=== PATIENT | male | born 1975 | race Caucasian/White ===

== ENCOUNTER 2021-03-27 14:58 | Emergency (ER) | payer OTHER ==
[~2021-03-27] VITALS: Ht 177 cm; Wt 65.0 kg
--- NOTE | 2021-03-27 15:17 | ED General ---
General Chief Complaint: COVID19 Suspect/Confirmed Stated Complaint: COVID+; DARK URINE History of Present Illness Date Seen by Provider: Mar 27, 2021 Time Seen by Provider: 15:15 Initial Comments 45-year-old male presents with just some generalized malaise not feeling well, mild cough. Patient reports that his symptoms started about 8 days ago. 7 days ago his daughter tested positive for COVID. He has similar symptoms. Patient presents because he continues to have significant fatigue and is concerned that his urine is dark and that he is dehydrated. Allergies and Home Medications Allergies Coded Allergies: No Known Drug Allergies (Unverified , 03/27/21) Patient Home Medication List Home Medication List Reviewed: Yes Review of Systems Review of Systems Constitutional: No chills, No fever; malaise Respiratory: No short of breath Cardiovascular: No chest pain Gastrointestinal: No abdominal pain, No nausea, No vomiting Musculoskeletal: no symptoms reported Skin: no symptoms reported Psychiatric/Neurological: See HPI Hematologic/Lymphatic: No Symptoms Reported Immunological/Allergic: no symptoms reported Physical Exam Vital Signs Vital Signs - First Documented 03/27/21 15:20 Temp 36.1 Pulse 67 Resp 16 B/P (MAP) 123/85 (98) Pulse Ox 97 O2 Delivery Room Air Capillary Refill : Height, Weight, BMI Height: '" Weight: lbs. oz. kg; BMI Method: General Appearance: No Apparent Distress, WD/WN HEENT: Moist Mucous Membranes Respiratory: Lungs Clear, Normal Breath Sounds Cardiovascular: Regular Rate, Rhythm, Normal Peripheral Pulses Gastrointestinal: Non Tender, Soft Extremity: Normal Capillary Refill, Normal Inspection, Normal Range of Motion Neurologic/Psychiatric: Alert, Oriented x3, No Motor/Sensory Deficits, Normal Mood/Affect, data programmer II-XII Norm as Tested Skin: Normal Color, Warm/Dry Progress/Results/Core Measures Suspected Sepsis SIRS Temperature: Pulse: Respiratory Rate: Laboratory Tests 03/27/21 15:26: White Blood Count 4.8 Blood Pressure / Mean: Laboratory Tests 03/27/21 15:26: Creatinine 0.91, Platelet Count 163, Total Bilirubin 0.4 Results/Orders Lab Results Laboratory Tests Test 03/27/21 15:26 Range/Units White Blood Count 4.8 4.3-11.0 10^3/uL Red Blood Count 5.74 H 4.30-5.52 10^6/uL Hemoglobin 16.9 13.3-17.7 g/dL Hematocrit 48 40-54 % Mean Corpuscular Volume 84 80-99 fL Mean Corpuscular Hemoglobin 29 25-34 pg Mean Corpuscular Hemoglobin Concent 35 32-36 g/dL Red Cell Distribution Width 12.3 10.0-14.5 % Platelet Count 163 130-400 10^3/uL Mean Platelet Volume 10.5 9.0-12.2 fL Immature Granulocyte % (Auto) 0 % Neutrophils (%) (Auto) 38 L 42-75 % Lymphocytes (%) (Auto) 43 12-44 % Monocytes (%) (Auto) 17 H 0-12 % Eosinophils (%) (Auto) 3 0-10 % Basophils (%) (Auto) 0 0-10 % Neutrophils # (Auto) 1.8 1.8-7.8 X 10^3 Lymphocytes # (Auto) 2.0 1.0-4.0 X 10^3 Monocytes # (Auto) 0.8 0.0-1.0 X 10^3 Eosinophils # (Auto) 0.1 0.0-0.3 10^3/uL Basophils # (Auto) 0.0 0.0-0.1 10^3/uL Immature Granulocyte # (Auto) 0.0 0.0-0.1 10^3/uL Neutrophils % (Manual) 48 % Lymphocytes % (Manual) 28 % Monocytes % (Manual) 13 % Myelocytes % 1 % Atypical Lymphocytes 6 % Reactive Lymphocytes 4 % Toxic Granulation 3+ Platelet Estimate NORMAL Blood Morphology Comment NORMAL Sodium Level 137 135-145 MMOL/L Potassium Level 4.5 3.6-5.0 MMOL/L Chloride Level 103 98-107 MMOL/L Carbon Dioxide Level 24 21-32 MMOL/L Anion Gap 10 5-14 MMOL/L Blood Urea Nitrogen 16 7-18 MG/DL Creatinine 0.91 0.60-1.30 MG/DL Estimat Glomerular Filtration Rate 105 BUN/Creatinine Ratio 18 Glucose Level 97 70-105 MG/DL Calcium Level 9.4 8.5-10.1 MG/DL Corrected Calcium 9.0 8.5-10.1 MG/DL Total Bilirubin 0.4 0.1-1.0 MG/DL Aspartate Amino Transf (AST/SGOT) 26 5-34 U/L Alanine Aminotransferase (ALT/SGPT) 32 0-55 U/L Alkaline Phosphatase 92 40-136 U/L Total Protein 7.6 6.4-8.2 GM/DL Albumin 4.5 3.2-4.5 GM/DL Smear Scan ATYP & REAC LYMPHS My Orders Orders - MICH RIVERA DO Cbc With Automated Diff (03/27/21 15:23) Comprehensive Metabolic Panel (03/27/21 15:23) Ua Culture If Indicated (03/27/21 15:23) Ns Iv 1000 Ml (Sodium Chloride 0.9%) (03/27/21 15:27) Manual Differential (03/27/21 15:26) Vital Signs/I&O 03/27/21 03/27/21 15:20 15:20 Temp 36.1 Pulse 67 Resp 16 B/P (MAP) 123/85 (98) Pulse Ox 97 O2 Delivery Room Air Room Air Capillary Refill : Progress Note : Progress Note Patient is well-hydrated with no physical signs or lab signs of any type of dehydration. Patient did receive 1 L IV fluids. Patient with likely COVID 19. Patient stable and will be discharged home I did discuss with him supportive care and he was provided information Departure Impression Primary Impression: Suspected COVID-19 virus infection Disposition: HOME, SELF-CARE Condition: Stable Departure-Patient Inst. Referrals: HUSSAIN MARISCAL MD (PCP) Primary Care Physician Patient Instructions: Recovery After COVID-19, COVID-19 ED Add. Discharge Instructions: Drink plenty of fluids Follow-up with your primary care provider as needed All discharge instructions reviewed with patient and/or family. Voiced unde rstanding. MICH RIVERA DO Mar 27, 2021 15:17
[2021-03-27] MEDS ORDERED: NS IV 1000 ML 1,000 ML IV STA (15:27)
[2021-03-27 15:53] LABS: POTASSIUM 4.5 MMOL/L (3.6-5.0)
[2021-03-27 15:54] LABS: ALBUMIN 4.5 GM/DL (3.2-4.5); BILIRUBIN,TOTAL 0.4 MG/DL (0.1-1.0); CALCIUM 9.4 MG/DL (8.5-10.1); CREATININE SERUM 0.91 MG/DL (0.60-1.30); TOTAL PROTEIN 7.6 GM/DL (6.4-8.2)
[2021-03-27 16:01] LABS: HEMOGLOBIN 16.9 g/dL (13.3-17.7); MEAN CORPUSCULAR HEMOGLOBIN 29 pg (25-34); WHITE BLOOD COUNT 4.8 10^3/uL (4.3-11.0)
[2021-03-27 16:02] LABS: BASOPHILS % (AUTO) 0 % (0-10); EOSINOPHILS # (AUTO) 0.1 10^3/uL (0.0-0.3); EOSINOPHILS % (AUTO) 3 % (0-10); HEMATOCRIT 48 % (40-54); LYMPHOCYTES % (AUTO) 43 % (12-44); MEAN CORPUSCULAR HGB CONC 35 g/dL (32-36); MEAN CORPUSCULAR VOLUME 84 fL (80-99); MEAN PLATELET VOLUME 10.5 fL (9.0-12.2); MONOCYTES # (AUTO) 0.8 X 10^3 (0.0-1.0); MONOCYTES % (AUTO) 17 % (0-12); NEUTROPHILS # (AUTO) 1.8 X 10^3 (1.8-7.8); NEUTROPHILS % (AUTO) 38 % (42-75); PLATELET COUNT 163 10^3/uL (130-400)
[2021-03-27 16:05] LABS: NEUTROPHILS % (MANUAL) 48 %; SMEAR SCAN COMMENT ATYP & REAC LYMPHS
[2021-03-27 16:06] LABS: ATYPICAL LYMPHOCYTES 6 %; LYMPHOCYTES % (MANUAL) 28 %; MONOCYTES % (MANUAL) 13 %; MYELOCYTES % 1 %; PLATELET ESTIMATE NORMAL; RBC MORPH NORMAL; REACTIVE LYMPHOCYTES 4 %
[2021-03-27 16:07] LABS: TOXIC GRANULATION/VACUOLAZATIO 3+
[2021-03-27 16:19] VITALS: BP 123/85
== END 2021-03-27 16:20 | disposition home or self-care (01) ==
LOC: ER FS 15:04
DX: Z20.822 Contact with and (suspected) exposure to COVID-19 (principal)
CPT/HCPCS: 36415; 80053; 85007; 85027